=== PATIENT | male | born 1975 | race Two or more races ===

== ENCOUNTER 2017-06-12 21:58 | Emergency (ER) | payer OTHER ==
[~2017-06-12] VITALS: Ht 177.8 cm; Wt 91.2 kg
[2017-06-12] MEDS ORDERED: GLUC750T2 (22:29)
[2017-06-12] MEDS ORDERED: CYCL10TA PO (23:38)
[2017-06-12] MEDS ORDERED: CYCLOBENZAPRINE 10 MG TAB PO ONE (23:45)
[2017-06-12 23:46] VITALS: BP 123/85
--- NOTE | 2017-06-15 19:14 | ECGEPIP ---
Stationary ECG Study [facility] Test Date: 2017-06-12 Pat Name: CHESTER HARO Department: Room: - Gender: M Undergraduate Advisor: : 1975 Requested By: RADHA MAYORGA Order Number: [id number] Reading MD: Olaf Solis Measurements Intervals [place] Rate: 70 P: 152 AK: 161 QRS: 162 QRSD: 102 T: 174 QT: 364 QTc: 394 Interpretive Statements SINUS RHYTHM ARM LEADS REVERSED Otherwise normal No prior tracing Electronically Signed On 06-15-2017 19:14:51 EDT by Olaf Solis
== END 2017-06-12 23:48 | disposition home or self-care (01) ==
LOC: M ED 21:58
DX: M54.6 Pain in thoracic spine (principal)

== ENCOUNTER → 2017-06-19 | Outpatient (CLI) | payer OTHER ==
[~2017-06-19] MED LIST: CYCL10TA PO; GLUC750T2; ISOVUE-370 76% 100ML VIAL (Q9967) As Ordered ONE
--- NOTE | 2017-06-26 03:20 | REP ---
Clinical: Abnormal chest x-ray findings. Comparison: Report of chest x-ray dated 05/08/2017. Technique: Axial contrast enhanced images from the thoracic inlet to the upper abdomen using 100 ml Isovue 370 intravenous contrast material with coronal and sagittal re-formations. Findings: The lung goodwin are relatively well aerated, symmetric and without acute consolidation, significant nodule or mass lesion. Mildly increased interstitial markings and very subtle areas of ground-glass opacity primarily involve the infrahilar and basilar lower lobes which may reflect subtle chronic changes related to reactive airway disease. Findings are nonspecific and without significant changes to suggest interstitial lung disease or significant process. No acute pleural effusion or pneumothorax. The tracheobronchial tree is patent. No significant mediastinal or hilar adenopathy noted. Mediastinum demonstrates normal thoracic aorta, heart and pericardium. No evidence for aortic aneurysm, cardiomegaly or pericardial effusion. Few mildly prominent left axillary lymph nodes are identified which are otherwise nonspecific. Surrounding musculoskeletal structures are intact and without abnormality. Limited evaluation of the upper abdomen demonstrates normal bilateral adrenal glands. Impression: 1. Relatively mild chronic appearing interstitial changes to the bilateral lower lobes with associated subtle scattered ground-glass opacity. Findings suggest sequelae of mild reactive airway disease. 2. No significant acute mediastinal or pleuroparenchymal process. 3. The prior examination is not available for comparison at the time evaluation. If prior examinations are made available, reevaluation and addendum (if necessary may be made). Signed by Erick Keys MD 06/26/2017 03:10 A
== END ==
LOC: M RAD 07:54
PROVIDERS: ATTEND Physician Assistant
DX: R91.8 Other nonspecific abnormal finding of lung field (principal)
CPT/HCPCS: 71260; Q9967

== ENCOUNTER → 2017-07-16 | Outpatient (CLI) | payer OTHER ==
[~2017-07-16] MED LIST changes: -ISOVUE-370 76% 100ML VIAL (Q9967) As Ordered ONE
--- NOTE | 2017-08-03 23:32 | ECWPNPC ---
PATIENT NAME: CHESTER HARO : 1975 GENDER: MALE VISIT DATE: 07/16/2017 DISCHARGE DATE: 07/16/17 1708 VISIT LOCKED DATE TIME: PHYSICIAN: SANDY ONEAL RESOURCE: SANDY ONEAL REASON FOR APPOINTMENT 1. LOW BACK PAIN HISTORY OF PRESENT ILLNESS NEW PATIENT CONSULT: WHEN DID YOUR PAIN FIRST START? . BRIEFLY DESCRIBE HOW YOUR PAIN STARTED? . HOW DOES YOUR PAIN CHANGE WITH TIME? . DOES YOUR PAIN AWAKEN YOU FROM SLEEP? . HOW MANY HOURS OF SLEEP DO YOU NORMALLY GET? . ANY DIAGNOSTIC TESTING? . FACILITY WHERE TESTS WERE DONE? ____. PAIN TREATMENT TREATMENT YES CANCER HAVE YOU EVER HAD ANY TYPE OF CANCER?NO NO. 42 YEAR OLD MALE PATIENT WITH HISTORY OF CHRONIC LOW BACK PAIN. PATIENT DESCRIBES THE PAIN ACHING, SHARP, AND STABBING WITH A PAIN SCORE OF 6/10. PATIENT REPORTS HIS PAIN STARTED ROUGHLY 5 YEARS AGO AND REPORTS NO TRAUMA. PATIENT STATES HE HAS PAIN THAT GOES DOWN THE LEFT LEG. CURRENTLY THE PATIENT IS NOT USING ANY MEDICATION FOR PAIN MANAGEMENT. PATIENT HAS NOT TRIED PHYSICAL THERAPY FOR THIS ISSUE. PATIENT DENIES UNEXPLAINABLE WEIGHT LOSS, FEVER, CHILLS, NEW CHANGES ON HIS URINARY OR BOWEL CONTROL. PAIN SCREENING: PATIENT HAS A COMPLAINT OF ACUTE OR CHRONIC PAIN :YES FALL RISK SCREENING: SCREENING :NO FALLS IN THE PAST YEAR OLIVO INVENTORY: QUESTIONNAIRE ASSESSEDTBD SCORE VALUE CALCULATED TBD CURRENT MEDICATIONS TAKING GLUCOSAMINE CHONDRO COMPLEX - CAPSULE ORALLY MEDICATION LIST REVIEWED AND RECONCILED WITH THE PATIENT PAST MEDICAL HISTORY LOW BACK PAIN CHEST PAIN SHINGLES ALLERGIES ENVIRONMENTAL : RASH, SNEEZING SURGICAL HISTORY SEPTOPLASTY VASECTOMY PRK HERNIA REPAIR 11/2014 APPENDECTOMY SOCIAL HISTORY GENERAL: ALCOHOL SCREENING POINTS3 INTERPRETATIONNEGATIVE CAFFEINE CAFFEINE USE?YES HOW OFTEN AND HOW MUCH? 1-2 CUPS EVERY OTHER DAY OCCUPATION: . DIET: REGULAR. EXERCISE: NONE. MARITAL STATUS: . OTHERS AT HOME: SPOUSE, CHILDREN. PETS: 2 DOGS,1 CAT, HAMSTER,FISH. ADVENTIST [id number] HINDUISM LANGUAGE LANGUAGES SPOKEN:CZECH EDUCATION LEVEL OF EDUCATION:PROFESSIONAL SCHOOLS/MASTERS/PHD LEARNING BARRIERS / SPECIAL NEEDS BARRIERS TO LEARNING?NO HEARING IMPAIRED?NO VISION IMPAIRED?NO COGNITIVELY IMPAIRED?NO READINESS TO LEARN?NO LEARNING PREFERENCES?NO LEARNING CAPABILITIES PRESENT?NO EMOTIONAL BARRIERS?NO SPECIAL DEVICES?NO REGISTRAR MUSEUM NEEDED?NO PAIN CLINIC PFS, CLERGY, PUBLIC HEALTH REFERRALS PFS REFERRAL NEEDED?NO CLERGY REFERRAL NEEDED?NO PUBLIC HEALTH REFERRAL NEEDED?NO WAS THE PROVIDER NOTIFIED OF ANY PERTINENT INFO?NO HAS THE PATIENT BEEN EDUCATED REGARDING HIS/HER PLAN OF CARE?YES HAS THE PATIENT BEEN EDUCATED REGARDING PAIN, THE RISK FOR PAIN, THE IMPORTANCE OF EFFECTIVE PAIN MANAGEMENT, AND THE PAIN ASSESSMENT PROCESS?YES PATIENT: ____. 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 RENATA HARO PHONE # OF POA? DO YOU HAVE A COPY WITH YOU? NO HOSPITALIZATION/MAJOR DIAGNOSTIC PROCEDURE NO HOSPITALIZATION HISTORY. REVIEW OF SYSTEMS REVIEWED BY: PROVIDER: SANDY ONEAL MD . CONSTITUTIONAL: ANY CHANGE IN YOUR MEDICAL CONDITION? YES . CHILLS NO . FEVER NO . INFECTION: DO YOU HAVE NEW INFECTIONS? NO . DO YOU HAVE HISTORY OF MRSA? NO . MUSCULOSKELETAL: ANY NEW PATTERNS OF PAIN OR NUMBNESS? YES . SYTEMIC LUPUS NO . GASTROENTEROLOGY: ANY NEW CHANGE IN BOWEL CONTROL? NO . BARRETTS ESOPHAGUS NO . CIRRHOSIS NO . HEPATITIS NO . LIVER FAILURE NO . ACID REFLUX NO . UNEXPLAINED WEIGHT LOSS NO . GENITOURINARY: ANY NEW CHANGE IN BLADDER CONTROL? NO . IS THERE A CHANCE YOU COULD BE ? NO . HEMATOLOGY/LYMPH: DO YOU TAKE ANY BLOOD THINNERS? (FOR EXAMPLE- COUMADIN, PLAVIX, AGGRENOX, PLATEL, PRADAXA, OR XARELTO) NO . WHEN WAS YOUR LAST DOSE? DATE: TIME: . LOW PLATELET COUNT NO . SICKLE CELL DISEASE NO . VON WILLIEBRANDS NO . FACTOR V LEIDEN NO . THALLASEMIA NO . ANEMIA NO . EASY BRUISING NO . NEUROLOGY: HAVE YOU FALLEN IN THE PAST 6 MONTHS? NO . ANY NEW EXTREMITY NUMBNESS OR WEAKNESS? YES . HEAD INJURY NO . DEMENTIA NO . CEREBRAL PALSY NO . MULTIPLE SCLEROSIS NO . DIZZINESS INTERMITTENT . HEADACHE DULL ACHE . STROKES NO . VERTIGO NO . CARDIOLOGY: DO YOU HAVE A PACEMAKER OR DEFIBRILLATOR? NO . ANGINA NO . HEART ATTACK NO . HEART SURGERY NO . CONGESTIVE HEART FAILURE/FLUID OVERLOAD NO . CHEST PAIN AGGRAVATED WITH COUGHING . HIGH BLOOD PRESSURE NO . IRREGULAR HEART BEAT NO . RESPIRATORY: HAVE YOU BEEN SICK IN THE PAST WEEK? NO . FEVER NO . FLU LIKE SYMPTOMS? NO . CPAP NO . BYPAP NO . ASTHMA NO . EMPHYSEMA NO . CHRONIC LUNG DISEASES NO . SHORTNESS OF BREATH ON EXERTION NO . DO YOU USE ANY TYPE OF TOBACCO (SMOKE, SMOKELESS, CHEW)? NO . COUGH NO . SNORING YES . INTEGUMENTARY: DO YOU HAVE ANY RASHES OR OPEN SORES? NO . ALLERGIC/IMMUNO: ARE YOU ALLERGIC TO SHELLFISH OR IV DYE? NO . ANY NEW ALLERGIES? NO . PSYCHIATRIC: DO YOU HAVE THOUGHTS OF HURTING YOURSELF OR SOMEONE ELSE? NO . ARE YOU ABUSED, NEGLECTED, OR IN AN UNSAFE ENVIRONMENT? NO . ENDOCRINOLOGY: ARE YOU DIABETIC? NO . THYROID DISORDER NO . OTHER: DO YOU NEED ANY PRESCRIPTIONS? NO . IF YES, PLEASE LIST: ____ . ANY NEW PROBLEMS WITH YOUR MEDICATIONS? NO . WHEN DID YOU LAST EAT? ____ . WHEN DID YOU LAST DRINK? ____ . WHAT DID YOU LAST DRINK? ____ . NAME OF PERSON DRIVING YOU HOME? ____ . DO YOU HAVE ANY OTHER QUESTIONS OR CONCERNS NO . VITAL SIGNS WT 192 LBS, HT 70 IN, BMI 27.55 INDEX, BP 115/79 MM HG, HR 75 /MIN, RR 18 /MIN, TEMP 97.9 F, OXYGEN SAT % 98%, NA INITIALS SC 15:46, REVIEWED BY: VD. EXAMINATION : PATIENT IS ALERT O X 3 AND COOPERATIVE. TENDERNESS IN THE LOWER BACK AND PARASPINAL MUSCLE GROUP. LIMPING FROM THE LEFT LEG. MRI OF THE LUMBAR SPINE DONE ON 11/19/16 SHOWS DEGENERATIVE DISC DISEASE AND A DISC PROTRUSION AT L5-S1. 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 HARO'S PAIN MANAGEMENT CASE. AFTER VIEWING THE MRI AND WHERE THE PATIENT STATES HIS WORST PAIN IS, I WOULD LIKE TO PROCEED WITH A LUMBAR EPIDURAL L5-S1. WE DISCUSSED THE RISKS, BENENFITS, AND ALTNERATIVES OF THE INJECTION AND THE PATIENT WOULD LIKE TO PROCEED AT THIS TIME. INSTRUCTIONS WERE GIVEN, QUESTIONS WERE ANSWERED, PATIENT REPORTS UNDERSTANDING AND AGREES WITH THE PLAN. I, JUANCARLOS ALSTON, DOCUMENTED THE ABOVE INFORMATION ACTING A SCRIBE FOR DR. ONEAL. I HAVE REVIEWED THE ABOVE DOCUMENT, WRITTEN BY JUANCARLOS LIN AND I VERIFY THAT IT IS ACCURATE. [facility]:THANK YOU FOR YOUR KIND REFERRAL OF MR. HARO. YOU WANT TO DISCUSS HIS CASE WITH ME PLEASE CALL ME AT THE PAIN CENTER AT [phone]. SINCERELY,SANDY ONEAL, [facility]. PROCEDURE CODES FA211 ESTABILISHED PATIENT [facility] CHARGE G8427 DOC MEDS VERIFIED W/PT OR RE G8730 PAIN ASSESS POS TOOL F/U PLAN DOC DISPOSITION & COMMUNICATION FOLLOW UP LESI AFTER APPROVAL ELECTRONICALLY SIGNED BY SANDY ONEAL MD ON 08/03/2017 AT 08:51 PM EDT DISCLAIMER : THIS IS A VISIT SUMMARY EXTRACTED FROM THE [employer] CHART. IT IS NOT A COPY OF THE [employer] PROGRESS NOTE. ERIC
== END ==
LOC: M PAIN 15:30
PROVIDERS: ATTEND Anesthesiology
DX: M51.17 Intervertebral disc disorders with radiculopathy, lumbosacral region (principal); M47.816 Spondylosis without myelopathy or radiculopathy, lumbar region; M47.817 Spondylosis without myelopathy or radiculopathy, lumbosacral region; M54.5 Low back pain; G89.29 Other chronic pain; J30.9 Allergic rhinitis, unspecified